=== PATIENT | female | born 1980 | race African-American/Black ===

== ENCOUNTER 2017-03-24 11:31 | Emergency (ER) | payer OTHER ==
[~2017-03-24] VITALS: Ht 170.2 cm; Wt 59.0 kg
--- NOTE | 2017-03-24 13:36 | NUR ---
MSE COMPLETES, LEFT KNEE IMMOBILZER AND RT THUMB SPLICA PLACED, PT THEN D/C'D HOME, ACI GIVEN.
[2017-03-24 13:38] VITALS: BP 115/68
== END 2017-03-24 13:39 | disposition home or self-care (01) ==
LOC: ER 11:31
DX: S89.92XA Unspecified injury of left lower leg, initial encounter (principal); S69.92XA Unspecified injury of left wrist, hand and finger(s), initial encounter; V89.2XXA Person injured in unspecified motor-vehicle accident, traffic, initial encounter; Y92.410 Unspecified street and highway as the place of occurrence of the external cause; Y93.89 Activity, other specified; Y99.8 Other external cause status
CPT/HCPCS: 73110; 73130; A4663

== ENCOUNTER 2019-08-03 16:39 | Emergency (ER) | payer MEDICAID, OTHER ==
[~2019-08-03] VITALS: Ht 170.2 cm; Wt 63.5 kg
--- NOTE | 2019-08-03 17:42 | NUR ---
Patient discharged to home in stable condition. Written and verbal after care instructions given. Patient verbalizes understanding of instructions. Stressed follow up or return to ER for worsening s/s. ambulatory w/ stable gait all belongings w/ pt
[2019-08-03 17:43] VITALS: BP 110/78
== END 2019-08-03 17:44 | disposition home or self-care (01) ==
LOC: ER 16:41
DX: J98.01 Acute bronchospasm (principal); R05 Cough
CPT/HCPCS: 71045; A4663

== ENCOUNTER 2023-02-17 04:12 | Emergency (ER) | payer MEDICAID, OTHER ==
[~2023-02-17] VITALS: Ht 170.2 cm; Wt 59.0 kg
[2023-02-17 04:21] VITALS: O2SAT 100
== END 2023-02-17 04:39 | disposition left against medical advice (07) ==
LOC: ER 04:17
DX: R05.9 Cough, unspecified (principal); J02.9 Acute pharyngitis, unspecified; R06.02 Shortness of breath; R21 Rash and other nonspecific skin eruption; Z53.21 Procedure and treatment not carried out due to patient leaving prior to being seen by health care provider
CPT/HCPCS: A4606; A4663

== ENCOUNTER 2023-02-21 15:40 | Emergency (ER) | payer OTHER ==
[~2023-02-21] VITALS: Ht 170.2 cm; Wt 68.0 kg
[2023-02-21] MEDS ORDERED: PRED50TA PO (17:48)
[2023-02-21 17:54] VITALS: BP 136/72; TEMP 98; O2SAT 97
== END 2023-02-21 17:54 | disposition home or self-care (01) ==
LOC: ER 15:40
DX: J45.909 Unspecified asthma, uncomplicated (principal); R07.89 Other chest pain; Z79.899 Other long term (current) drug therapy
CPT/HCPCS: 71045; A4606; A4663